=== PATIENT | male | born 1970 | race Hispanic/Latino ===

== ENCOUNTER 2017-05-15 16:56 | Emergency (ER) | payer OTHER ==
[2017-05-15 16:56] VITALS: BMI 32.8
[2017-05-15 17:18] VITALS: BP 138/88; PULSE 97; RESP 18; TEMP 97.8; O2SAT 97
[2017-05-15] MEDS ORDERED: Phenylephrine 0.5% Nasal Spray (15 ml) NS STA (17:57)
--- NOTE | 2017-05-15 18:02 | ED PDOC ---
Arrival/HPI - General Chief Complaint: ENT Problem Time Seen by Provider: 05/15/17 17:46 Historian: Patient - History of Present Illness Narrative History of Present Illness (Text): 05/15/17 18:00 A 46-year-old male presents today with epistaxis that started 1 hour prior to arrival. Patient states he blew his nose and developed bleeding from both nostrils. Patient states that the bleeding has stopped while in the emergency room. He denies headache dizziness or weakness. No chest pain or shortness of breath. Denies fevers or chills. Denies any recent trauma or injury. Patient states that he has a prior history of nosebleeds in the past and has been followed by Dr. Alvarez Time/Duration: 1 hour Symptom Course: Resolved Quality: Other (NO pain) Past Medical History - Provider Review Nursing Documentation Reviewed: Yes - Travel History Have you recently traveled outside [place] w/in the past 3 mons?: No - Past History Past History: Non-Contributing - Infectious Disease Hx of Infectious Diseases: None - Tetanus Immunization Tetanus Immunization: Unknown - Cardiac Hx Cardiac Disorders: No - Pulmonary Hx Respiratory Disorders: No Hx Sleep Apnea: Yes (SURGERY 9 YR AGO NO LONGER USES C PAP) - Neurological Hx Neurological Disorder: No - HEENT Hx HEENT Disorder: No - Renal Hx Renal Disorder: Yes Hx Kidney Stones: Yes - Endocrine/Metabolic Hx Endocrine Disorders: Yes Hx Diabetes Mellitus Type 2: Yes - Hematological/Oncological Hx Blood Disorders: Yes Hx Anemia: Yes (THALASEMIA) - Integumentary Hx Dermatological Disorder: No - Musculoskeletal/Rheumatological Hx Musculoskeletal Disorders: Yes Hx Fractures: Yes (l ankle) - Gastrointestinal Hx Gastrointestinal Disorders: No - Genitourinary/Gynecological Hx Genitourinary Disorders: Yes Other/Comment: PHIMOSIS - Psychiatric Hx Psychophysiologic Disorder: No Hx Substance Use: No - Past Surgical History Past Surgical History: Non-Contributing - Surgical History Hx Open Reduction Internal Fixation: Yes (left ankle) Other/Comment: REPAIR DEVIATED SEPTUM TURBINECTOMY ETHMOIDECTOMY 1 YR AGO - Anesthesia Hx Anesthesia: Yes Hx Anesthesia Reactions: No Hx Malignant Hyperthermia: No - Suicidal Assessment Feels Threatened In Home Enviroment: No Family/Social History - Physician Review Nursing Documentation Reviewed: Yes Family/Social History: Unknown Family HX Smoking Status: Former Smoker Hx Alcohol Use: No Hx Substance Use: No Hx Substance Use Treatment: No Allergies/Home Meds Allergies/Adverse Reactions: Allergies No Known Allergies Allergy (Verified 05/15/17 17:52) Home Medications: Home Meds Medication Instructions Recorded Confirmed Metformin Hydrochloride [Metformin] 500 mg PO BID 03/20/14 05/15/17 Review of Systems - Review of Systems Constitutional: absent: Fatigue, Fevers ENT: Epistaxis. absent: Sinus Congestion Respiratory: absent: SOB, Cough Cardiovascular: absent: Chest Pain, Palpitations Gastrointestinal: absent: Abdominal Pain, Diarrhea, Nausea, Vomiting Musculoskeletal: absent: Arthralgias, Back Pain Neurological: absent: Headache, Dizziness Psychiatric: absent: Anxiety, Depression Physical Exam Vital Signs Reviewed: Yes Vital Signs Temp Pulse Resp BP Pulse Ox 05/15/17 17:00 97.8 F 97 H 18 138/88 97 Temperature: Afebrile Blood Pressure: Normal Pulse: Regular Respiratory Rate: Normal Appearance: Positive for: Well-Appearing, Non-Toxic, Comfortable Pain Distress: None Mental Status: Positive for: Alert and Oriented X 3 - Systems Exam Head: Present: Atraumatic Mouth: Present: Moist Mucous Membranes Pharnyx: Present: Normal Nose (External): Present: Atraumatic Nose (Internal): Present: No Active Bleeding. No: Engorged, Clear Mucous, Rhinorrhea Neck: Present: Normal Range of Motion, Trachea Midline Respiratory/Chest: Present: Clear to Auscultation, Good Air Exchange. No: Respiratory Distress, Accessory Muscle Use Cardiovascular: Present: Regular Rate and Rhythm Neurological: Present: GCS=15 Skin: Present: Warm, Dry, Normal Color. No: Rashes Psychiatric: Present: Alert, Oriented x 3 Medical Decision Making ED Course and Treatment: 05/15/17 18:02 Patient is nontoxic well-appearing no distress with stable vital signs patient with epistaxis that occurred 1 hour prior to arrival. At present time there is no active bleeding. Patient observed in the emergency room without any active bleeding. James-Synephrine spray placed in each nostril. Patient was advised to follow-up with the ENT specialist within the next 2 days. He was advised to return if symptoms worsen or persist or if new concerning symptoms develop Patient verbalizes understanding of discharge instructions and need for immediate followup. all aspects of this case were discussed the attending of record. Impression: Epistaxis, resolved Follow up with the ENT specialist within the next 2 days follow up with the primary care physician within the next 2 days. return immediately if symptoms worsen,persist or if new symptoms develop. - Medication Orders Current Medication Orders: Phenylephrine HCl (James-Synephrine 0.5% Nasal [place]) 1 ml NS STAT STA Stop: 05/15/17 17:58 Disposition/Present on Arrival - Present on Arrival Any Indicators Present on Arrival: No History of DVT/PE: No History of Uncontrolled Diabetes: No Urinary Catheter: No History of Decub. Ulcer: No History Surgical Site Infection Following: None - Disposition Have Diagnosis and Disposition been Completed?: Yes Diagnosis: Epistaxis Disposition: HOME/ ROUTINE Disposition Time: 17:59 Patient Plan: Discharge Condition: GOOD Discharge Instructions (ExitCare): Nosebleed (ED) Additional Instructions: Follow up with the ENT specialist within the next 2 days follow up with the primary care physician within the next 2 days. return immediately if symptoms worsen,persist or if new symptoms develop. Referrals: Jermaine Wren MD [Primary Care Provider] - Follow up with primary Ike Alvarez DO [Staff Provider] - Follow up with primary Forms: [employer] ([place])
== END 2017-05-15 18:20 | disposition home or self-care (01) ==
LOC: ED 16:56
DX: R04.0 Epistaxis (principal); E11.9 Type 2 diabetes mellitus without complications